=== PATIENT | female | born 1985 | race Two or more races ===

== ENCOUNTER 2018-06-18 15:58 | Emergency (ER) | payer OTHER ==
[~2018-06-18] VITALS: Ht 180.3 cm; Wt 111.0 kg
[2018-06-18 18:30] VITALS: BP 113/71
== END 2018-06-18 23:50 | disposition left against medical advice (07) ==
LOC: ER 15:58
DX: M79.652 Pain in left thigh (principal); Z53.21 Procedure and treatment not carried out due to patient leaving prior to being seen by health care provider